=== PATIENT | male | born 1975 | race Caucasian/White ===

== ENCOUNTER → 2017-01-12 | Outpatient (CLI) | payer BC ==
[~2017-01-12] MED LIST: PRLSR20 PO
--- NOTE | 2017-01-12 11:01 | DIAGNOSTIC IMAGING REPORT ---
CHEST 2 VIEWS ROUTINE CLINICAL HISTORY: 41 years-old Male presenting with R50.9 R70.0, cough. TECHNIQUE: PA and lateral views of the chest were obtained. COMPARISON: None. FINDINGS: Cardiomediastinal silhouette normal. Minimal linear opacities at the left lung base. Lungs and pleural spaces otherwise clear. Osseous structures normal. Upper abdomen normal. IMPRESSION: 1. Minimal linear opacities at the left lung base could suggest atelectasis or scarring. No other focal infiltrate. Electronically signed by: Serafin Ontiveros M.D. 01/12/2017 11:00 AM Dictated Date/Time: 01/12/2017 10:59 AM
== END | disposition home or self-care (01) ==
LOC: C.RAD1850 10:35
PROVIDERS: ATTEND Family Medicine
DX: R50.9 Fever, unspecified (principal); R05 Cough; R70.0 Elevated erythrocyte sedimentation rate